=== PATIENT | male | born 1995 | race Caucasian/White ===

== ENCOUNTER 2016-06-16 19:39 | Emergency (ER) | payer SELFPAY ==
[~2016-06-16] VITALS: Ht 193 cm; Wt 87.0 kg
[2016-06-16 19:43] VITALS: TEMP 36.8; Ht 193 cm; Wt 87.0 kg
--- NOTE | 2016-06-16 20:23 | EMERGENCY ROOM VISIT NOTE ---
History Report prepared by Cristian: Nirmal Mills Under the Supervision of: Dr. Evelio Choe M.D. First contact with patient: 20:12 Chief Complaint: ALCOHOL OVERDOSE Stated Complaint: ETOH Nursing Triage Summary: found in alley, see triage note for details History of Present Illness The patient is a 21 year old male who presents to the Emergency Room via EMS with complaints of resolving alcohol intoxication that occurred prior to arrival today. Per EMS, the patient was found unresponsive in an alley. The patient states that he was drinking this afternoon, and fell asleep, and now he is here. He denies vomiting, or any trauma or falls today. The patient has an abrasion on his face, but the patient says that this was from a couple nights ago. Currently, he says he feels fine. The patient notes no chronic medical problems. His tetanus is up to date. Source of History: patient, EMS Onset: Prior to arrival today Position: other (global - alcohol intoxication) Timing: other (resolving) Associated Symptoms: No vomiting Note: Associated symptoms: Found unresponsive in alley. Denies trauma or falls today. Old abrasion to face. Review of Systems See HPI for pertinent positives & negatives. A total of 10 systems reviewed and were otherwise negative. Past Medical & Surgical Medical Problems: (1) No chronic problems Family History No pertinent family history Social History Smoking Status: Never Smoker Alcohol Use: occasionally Marital Status: single Housing Status: lives with roommate Occupation Status: [employer] student Current/Historical Medications No Active Prescriptions or Reported Meds Physical Exam Vital Signs Date Time Temp Pulse Resp B/P Pulse Ox O2 Delivery O2 Flow Rate FiO2 06/16/16 20:47 138/72 06/16/16 20:39 93 22 99 06/16/16 20:09 103 24 99 06/16/16 20:07 Room Air 06/16/16 19:55 110 06/16/16 19:43 36.8 106 20 150/87 95 Room Air 06/16/16 19:41 150/87 Physical Exam GENERAL: Patient is in no acute distress. HEENT: Normocephalic, mucous membranes moist, no nasal congestion, no scleral icterus. Pupils equal and reactive to light. Old abrasion to right face. NECK: No stridor, no adenopathy, no meningismus, trachea is midline. LUNGS: Clear to auscultation bilaterally, no wheeze, no rhonchi, breath sounds equal. HEART: Without murmurs gallops or rubs, regular rate and rhythm. ABDOMEN: Soft, nontender, bowel sounds positive, no hernias, no peritonitis. EXTREMITIES: No cyanosis or edema, full range of motion of all the joints without pain or difficulty, no signs for acute trauma. NEUROLOGIC: Mildly intoxicated with alcohol, no acute motor or sensory deficits , no focal weakness. Awake and talking, no significant speech slur. SKIN: No rash, no jaundice, no diaphoresis. Medical Decision & Procedures Laboratory Results 06/16/16 20:04 Test 06/16/16 20:04 Anion Gap 9.0 mmol/L (3-11) Est Creatinine Clear Calc Drug Dose 194.8 ml/min Estimated GFR () > 150.0 Estimated GFR (Non- 131.7 BUN/Creatinine Ratio 19.7 (10-20) Calcium Level 8.5 mg/dl (8.5-10.1) Ethyl Alcohol mg/dL 260.0 mg/dl (0-3) Laboratory results reviewed by me. ED Course 2011: The patient was evaluated in room B4B. A complete history and physical exam was performed. 2039: I reevaluated the patient and he is resting comfortably. He has a sober friend at bedside. The patient verbally expressed understanding and agreement of the treatment plan. The patient will be discharged. Medical Decision Differential diagnosis includes but is not limited to drug and alcohol abuse, head trauma, dehydration, alcohol overdose. The patient presents for an unresponsive episode secondary to alcohol. He was found unresponsive. He is now awake and interactive, he has taken oral fluids while here in the emergency room. Renal panel testing does not show significant electrolyte abnormality or kidney failure. Alcohol level is about 260, moderately intoxicated with alcohol. He does not have any obvious acute trauma from today. He is in no distress. He has a sober friend at the bedside and I do think he can be discharged. The patient was told to avoid alcohol in excess, he will stay well-hydrated. No more alcohol tonight. If worsening, he can return. His presentation is consistent with an acute alcohol overdose. Impression Primary Impression: Alcohol intoxication Additional Impression: Alcohol overdose Scribe Attestation The scribe's documentation has been prepared under my direction and personally reviewed by me in its entirety. I confirm that the note above accurately reflects all work, treatment, procedures, and medical decision making performed by me. Departure Information Dispostion Home / Self-Care Prescriptions No Active Prescriptions or Reported Meds Forms HOME CARE DOCUMENTATION FORM, IMPORTANT VISIT INFORMATION Patient Instructions My [facility] Additional Instructions rest fluids no more alcohol tonight never use alcohol in excess return if worsening stay with friends today and tonight Problem Qualifiers
[2016-06-16 20:39] VITALS: PULSE 93; O2SAT 99
[2016-06-16 20:44] LABS: BLOOD UREA NITROGEN 14 mg/dl (7-18); BUN/CREATININE RATIO 19.7 (10-20); CALCIUM 8.5 mg/dl (8.5-10.1); CARBON DIOXIDE 26 mmol/L (21-32); CHLORIDE 109 mmol/L (98-107); CREATININE 0.73 mg/dl (0.60-1.40); GLUCOSE 98 mg/dl (70-99); POTASSIUM 4.2 mmol/L (3.5-5.1); SODIUM 144 mmol/L (136-145)
[2016-06-16 20:47] VITALS: BP 138/72
== END 2016-06-16 20:51 | disposition home or self-care (01) ==
LOC: C.EDB 19:43
DX: F10.129 Alcohol abuse with intoxication, unspecified (principal); T51.91XA Toxic effect of unspecified alcohol, accidental (unintentional), initial encounter